=== PATIENT | female | born 2005 | race Caucasian/White ===

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

== ENCOUNTER 2025-07-05 15:49 | Outpatient (CLI) | payer MEDICAID, SELFPAY ==
--- NOTE | 2025-07-05 16:03 | MR_ITS ---
WS: [id number] MRI HEAD WITHOUT CONTRAST TECHNIQUE: Sagittal T1, T2 axial, T2 axial FLAIR, axial and coronal T1 images, axial susceptibility weighted imaging, axial diffusion weighted images, and coronal T2 images were obtained. CLINICAL INFORMATION: HYPERPROLACTINEMIA COMPARISON: None. FINDINGS: Note a dedicated pituitary protocol was not performed. No evidence of restricted diffusion to suggest acute ischemia. No suspicious intracranial signal abnormalities. Ventricular system and basal cisterns are patent. Normal posterior fossa. Normal vascular flow voids at the skull base. No extra-axial fluid collections. Paranasal sinuses and mastoid air cells are well aerated. Normal posterior nasopharynx. Optic chiasm and pituitary infundibulum are normal in appearance. Visualized pituitary appears normal. Temporal lobes and hippocampal formations are normal in appearance. MR/MR head wo con* [id number] IMPRESSION: 1. No evidence of restricted diffusion to suggest acute ischemia. 2. No suspicious intracranial signal abnormalities. Normal darby-white differen tiation. 3. No significant parenchymal volume loss. 4. No hemosiderin on the susceptibly weighted images. 5. Normal optic chiasm and pituitary infundibulum. *If concern for pituitary microadenoma recommend MRI of the head without and wi th gadolinium enhancement with pituitary protocol including dynamic pituitary i maging
== END 2025-07-05 15:50 | disposition home or self-care (01) ==
LOC: RAD 15:52
PROVIDERS: PCP Family Medicine; Visit Provider Physician Assistant
DX: E22.1 Hyperprolactinemia (principal)
CPT/HCPCS: 70551

== ENCOUNTER 2025-07-24 13:52 | Outpatient (CLI) | payer MEDICAID, SELFPAY ==
--- NOTE | 2025-07-24 13:59 | MR_ITS ---
WS: [id number] MRI BRAIN WITHOUT AND WITH CONTRAST, ATTENTION DIRECTED TO THE PITUITARY GLAND HISTORY: HYPERPROLACTINEMIA COMPARISON: 07/05/2025 TECHNIQUE: Diffusion-weighted imaging, axial T2 sequence, and postcontrast images in 3 planes are performed. High-resolution coronal and sagittal imaging performed through the pituitary region with and without intravenous gadolinium. No restricted diffusion or acute ischemia. Normal darby and white matter. No signal abnormalities or hydrocephalus. Normal sized ventricles. No inferior displacement the cerebellar tonsils. Normal flow voids at the skull base. No hemosiderin or hemorrhage. There is a nonenhancing mass measuring 4.6 x 4.8 mm in the RIGHT lateral pituitary gland suspicious for pituitary microadenoma. No deviation of the optic chiasm or infundibulum. No additional masses. Sinuses are clear. No mastoid air cell disease. Calvarium is intact. MR/MR pituitary wo/w con* [id number] IMPRESSION: 1. RIGHT lateral pituitary microadenoma, 4.6 x 4.8 mm. 2. Otherwise MRI brain is negative. No prior infarct or acute infarct. 3. Normal optic chiasm and pituitary infundibulum.
[2025-07-24] MEDS: gadobenate dimeglumine 20 mL vial 19 ML IV (14:34)
== END 2025-07-24 13:53 | disposition home or self-care (01) ==
PROVIDERS: PCP Family Medicine; Visit Provider Physician Assistant
DX: E22.1 Hyperprolactinemia (principal); E23.6 Other disorders of pituitary gland
CPT/HCPCS: 70553